=== PATIENT | male | born 1975 | race African-American/Black ===

== ENCOUNTER 2022-02-02 07:47 | Day surgery (SDC) | payer MEDICAID ==
[~2022-02-02] VITALS: Ht 182.9 cm; Wt 108.9 kg
[2022-02-02] MEDS ORDERED: MEPERIDINE 100 MG INJ. 100 MG/ML VIAL ONE (09:21)
[2022-02-02] MEDS ORDERED: MIDAZOLAM HCL 5 MG/5 ML VIAL ONE (09:21)
[2022-02-02 09:55] VITALS: BP_SYST 115
== END 2022-02-02 11:30 | disposition home or self-care (01) ==
LOC: SMU 07:47 → SDS 07:47
PROVIDERS: ATTEND Internal Medicine
DX: K92.1 Melena (principal); K57.30 Diverticulosis of large intestine without perforation or abscess without bleeding; K63.5 Polyp of colon; K64.9 Unspecified hemorrhoids; Z20.822 Contact with and (suspected) exposure to COVID-19
CPT/HCPCS: 36415; 45385; 88305; 99153; 99152; U0003; G0378; J2250; J2175